=== PATIENT | male | born 1960 | race Hispanic/Latino ===

== ENCOUNTER → 2024-07-31 | Day surgery (SDC) | payer OTHER ==
[~2024-07-31] MED LIST: BENICAR20 MG PO; FENTANYL CITRATE/PF 100MCG/2 ML INJ ONE; LIDOCAINE HCL 2% LOCAL INJ 5 ML SDV VIAL INJ ONE; PROPOFOL IV EMULSION 50 ML IV ONE
[2024-07-31] MEDS: LACTATED RINGER'S 1,000 ML ONE (09:12)
[2024-07-31 11:34] VITALS: TEMP 97
[2024-07-31 12:12] VITALS: BP 114/71; PULSE 77; RESP 16; O2SAT 96
== END | disposition home or self-care (01) ==
LOC: OR 09:48 → EDSEX 13:30
PROVIDERS: ATTEND Internal Medicine Gastroenterology
DX: K29.70 Gastritis, unspecified, without bleeding (principal); Z86.0100 Personal history of colon polyps, unspecified; K31.89 Other diseases of stomach and duodenum; K20.90 Esophagitis, unspecified without bleeding; K21.9 Gastro-esophageal reflux disease without esophagitis; K64.8 Other hemorrhoids; I10 Essential (primary) hypertension; N20.0 Calculus of kidney; Z01.810 Encounter for preprocedural cardiovascular examination; Z79.899 Other long term (current) drug therapy
CPT/HCPCS: 43239; 45378; 93005; J2003; J2470; J2704; J3010; J7121